=== PATIENT | male | born 1995 | race Asian ===

== ENCOUNTER 2017-04-15 19:16 | Emergency (ER) | payer BC ==
[2017-04-15 20:34] VITALS: BP 145/95
--- NOTE | 2017-04-15 20:53 | UC ---
UC General HPI - HPI Summary HPI Summary: The patient comes in today for: 1. Fever, cough, Onset: Last evening. He felt fine during the day, but towards the end of the day, he took a nap and work up feeling tired and sore. Palliative/provocative: Tylenol helps. Quality: Myalgia/ache Region: Total body aches. Severity: 0/10 now, but was at worse. 6/10 Time: Comes and goes. Associated symptoms: Cough: present since the last 8 month, but slightly worse starting last evening. Cough production: Phlegm is clear Wheezing: none. Inhalers: None. Previous lung disease: None. Previous treatment: Tylenol has helped. Temperatures: 102.4 before Tylenol at 9 PM. Temperature at midnight: 99.8. This morning, it was 99.4. At 3 PM temperature today was 102.4. Tylenol take at 4 PM and the temperature now is 100.4 Rhinitis: nothing comes out. Body aches: Present. Headache: present in the past. Previous evaluation of cough: He saw his primary care provider seen February of this year. Dx: allergies Pulmonary doctor seen and thought the patient had allergies or postnasal drip and recommended Zyrtec which he has taken for about a month. Sneezing: None. Itchy nose: None. Itchy eyes: None. Known allergies: None. * - History of Current Complaint Chief Complaint: UCGeneralIllness Stated Complaint: FEVER Time Seen by Provider: 04/15/17 20:47 - Allergy/Home Medications Allergies/Adverse Reactions: Allergies Allergy/AdvReac Type Severity Reaction Status Date / Time No Known Allergies Allergy Verified 04/15/17 20:27 Home Medications: Home Medications Acetaminophen [Tylenol] 650 mg 04/15/17 [History] Cetirizine* [ZyrTEC 10 MG TAB*] 04/15/17 [History] PMH/Surg Hx/FS Hx/Imm Hx Previously Healthy: Yes Endocrine History Of: Denies: Diabetes, Thyroid Disease, Hyperthyroidism, Hypothyroidism, Dyslipidemia Cardiovascular History Of: Denies: Cardiac Disorders, Hypertension, Pacemaker/ICD, Myocardial Infarction , Congestive Heart Failure, Atrial Fibrillation, Deep Vein Thrombosis, Bleeding Disorders Respiratory History Of: Denies: COPD, Asthma, Bronchitis, Pneumonia, Pulmonary Embolism GI/ History Of: Denies: Gastroesophageal Reflux, Ulcer, Gastrointestinal Bleed, Gall Bladder Disease, Kidney Stones, Diverticulitis, Renal Disease, Urosepsis Neurological History Of: Denies: TIA, CVA, Dementia, Seizures, Migraine Psychological History Of: Denies: Anxiety, Depression, Bipolar Disorder, Schizophrenia, Post Traumatic Stress Disorder Cancer History Of: Denies: Lung Cancer, Colorectal Cancer, Breast Cancer, Prostate Cancer, Cervical Cancer Other History Of: Negative For: HIV, Hepatitis B, Hepatitis C, Anticoagulant Therapy - Surgical History Surgical History: None - Family History Known Family History: Negative: Cardiac Disease, Hypertension, Diabetes - Social History Occupation: Student Alcohol Use: Rare Substance Use Type: None Smoking Status (MU): Never Smoked Tobacco Review of Systems Constitutional: Fever Skin: Negative Eyes: Negative ENT: Sore Throat - Little bit by his report--scratchy. Respiratory: Cough Cardiovascular: Negative Gastrointestinal: Diarrhea - Stools today: 3-4 Genitourinary: Negative Musculoskeletal: Arthralgia All Other Systems Reviewed And Are Negative: Yes Physical Exam Triage Information Reviewed: Yes Appearance: Well-Appearing, No Pain Distress, Well-Nourished, Other: - The patient and the mother wanted both a rapid strep test and a throat culture. Vital Signs: Initial Vital Signs Temp 100.4 F 04/15/17 20:28 Pulse 117 04/15/17 20:28 Resp 18 04/15/17 20:28 BP 145/95 04/15/17 20:28 Pulse Ox 98 04/15/17 20:28 Vital Signs Reviewed: Yes Eyes: Positive: Conjunctiva Clear. Negative: Discharge ENT: Positive: Hearing grossly normal. Negative: Pharyngeal erythema, Nasal congestion, Nasal drainage, TM bulging, TM dull, TM red, Tonsillar swelling, Tonsillar exudate Dental: Negative: Gross Decay/Caries @, Dental Fracture @ Neck: Positive: Supple, Nontender, No Lymphadenopathy. Negative: Nuchal Rigidity Respiratory: Positive: No respiratory distress, No accessory muscle use. Negative: Chest non-tender, Lungs clear, Crackles, Wheezing Cardiovascular: Positive: RRR, No Murmur Abdomen Description: Positive: Nontender, No Organomegaly, Soft. Negative: Distended, Guarding Musculoskeletal: Positive: Strength Intact, ROM Intact, No Edema Neurological: Positive: Alert, Muscle Tone Normal Psychological: Positive: Age Appropriate Behavior, Consolable Skin: Negative: rashes, breakdown Diagnostics - Laboratory Diagnostic Studies Completed/Ordered: Strep test: (-). Throat culture: Pending. - Radiology No standard instances Xray Interpretation: No Acute Changes Course/Dx - Differential Dx - Multi-Symptom Provider Diagnoses: Chronic cough (Postinfectious). Upper respiratory infection. Viral syndrome Discharge - Discharge Plan Condition: Stable Disposition: HOME Patient Education Materials: Chronic Cough (ED) Referrals: No Primary Care Phys,NOPCP [Primary Care Provider] - 1 Week (Please see your primary care provider in about a week to see how well you are doing. )
--- NOTE | 2017-04-15 21:54 | RAD ---
INDICATION: Cough X 8 months COMPARISON: None TECHNIQUE: PA and lateral views of the chest were obtained. FINDINGS: The heart and mediastinum are normal in size and contour. The lungs are grossly clear. There is no evidence of large pleural effusion. Visualized bones are normal for the patient's age. There is no radiographic evidence of free air beneath the diaphragm IMPRESSION: No radiographic evidence of acute cardiopulmonary disease.
== END 2017-04-15 22:06 | disposition home or self-care (01) ==
LOC: UCEAST 19:16
DX: R05 Cough (principal); J06.9 Acute upper respiratory infection, unspecified; B34.9 Viral infection, unspecified
CPT/HCPCS: 71020; 87070; 87651; 99202; G0463